=== PATIENT | male | born 1955 | race Native Hawaiian/Other Pacific Islander ===

== ENCOUNTER 2019-11-06 17:28 | Inpatient (IN) ==
[2019-11-06] MEDS ORDERED: PIPERACILL/TAZOBAC CONSULT ACTIVE PRN (19:19)
[2019-11-06] MEDS ORDERED: VANCOMYCIN CONSULT ACTIVE PRN (19:19)
[2019-11-06] MEDS ORDERED: KETOROLAC TROMETHAMINE 15 MG/ML VIAL IV STA (19:19)
[2019-11-06] MEDS ORDERED: VANCOMYCIN HCL 1,250 MG in SODIUM CHLORIDE 0.9% 500 ML IV ONE (19:19)
[2019-11-06] MEDS ORDERED: PIPERACILLIN/TAZOBACTAM 4.5 GM/120 ML BAG IV ONE (19:19)
[2019-11-06] MEDS ORDERED: SODIUM CHLORIDE 0.9% 1000ML 1,000 ML IV SCH (19:20)
--- NOTE | 2019-11-06 19:25 | Emergency Department Note ---
Impression & Plan Cellulitis of hand, right, Elevated erythrocyte sedimentation rate, Elevated C- reactive protein ED Provider Note NAME: APURVA HOOPER AGE: 64 SEX: M ARRIVES VIA: Walk-In INFORMANT: Patient, ED PROVIDER(S): Jean Pelaez MD CHIEF COMPLAINT: Hand pain, swelling PLAN: Disposition: Admit MEDICAL DECISION MAKING: The patient is a pleasant 64-year-old gentleman, right hand dominant, who presents emergency department for persistent right thumb and hand swelling that involved over the past week or so when he initially remembers pricking his finger when working outside in his garden but did not recall any particular foreign or splinter, subsequently developing some swelling on Wednesday that worsened to his entire hand on Wednesday treated with oral Augmentin by his primary care doctor but no improvement over the weekend and was switched to clindamycin yesterday with continued lack of improvement. He does report numbness and tingling of his fingers and some intermittent pain that would respond to Tylenol and Motrin. He denies any fevers, chills, cough, congestion, nausea, vomiting, diarrhea. The patient no acute distress, afebrile stable vital signs. On exam the patient has moderate edema to the right hand with increased edema of the right phalanx (thumb) with edema extending but sparing the distal aspect of the thumb. There is some degree of fluctuance on the volar aspect of the thumb without any discrete fluid collection. He does not have any severe pain with passive flexion or extension, however, tenosynovitis is considered. Given the patient's symptoms persist despite being on oral antibiotics I did discuss with the patient recommendation for admission for IV antibiotics and orthopedic consultation. The patient was agreeable with this. Case was discussed with Dr. Cornejo, orthopedic surgery on-call, and he agrees with plan for admission for IV antibiotics and they will evaluate the patient in the morning., Blood work including blood cultures were ordered and pending. Patient was ordered for initial treatment with Zosyn and vancomycin. Case was discussed with Dr. Barroso, [facility] hospitalist, who will evaluate the patient for admission. X-ray of the hand negative for evidence of osseous involvement. WBC and platelets within normal limits. H/H 13.3/30.8.recent values for comparison. ESR and CRP are elevated at >90 and 8.8, respectively. Chemistry without metabolic acidosis. Lactate 1.5, within normal limits. Electrolytes and LFTs unremarkable. Triage Nursing notes reviewed and agree them. Prior medical records reviewed Vital Signs: reviewed and remarkable for no significant abnormalities Differential diagnosis: Cellulitis, abscess, MRSA infection, DVT, necrotizing fasciitis, dermatitis, drug eruption, allergic reaction, as well as other pathologies. ER treatment provided: See below. Laboratory studies: See below Imaging studies: XR hand RT min 3V routine CLINICAL HISTORY: right thumb infection, eval for osseous involvemen COMPARISON: None. DISCUSSION: The bones and joint spaces appear intact. There is no evidence of fracture, dislocation or bony disease. Considerable soft tissue swelling overlying the from and thenar eminence. No evidence for bony destructive process. IMPRESSION: Soft tissue edema. No acute bony abnormality. Consultation(s): Dr. Cornejo, Orthopedic surgery on-call, agrees with plan for admission for IV antibiotics and they will evaluate the patient in the morning. Case was discussed with Dr. Barroso, [facility] hospitalist, who will evaluate the patient for admission. HPI: The patient is a pleasant 64-year-old gentleman, right hand dominant, who presents emergency department for persistent right thumb and hand swelling that involved over the past week or so when he initially remembers pricking his finger when working outside in his garden but did not recall any particular foreign or splinter, subsequently developing some swelling on Wednesday that worsened to his entire hand on Wednesday treated with oral Augmentin by his primary care doctor but no improvement over the weekend and was switched to clindamycin yesterday with continued lack of improvement. He does report numbness and tingling of his fingers and some intermittent pain that would respond to Tylenol and Motrin. He denies any fevers, chills, cough, congestion, nausea, vomiting, diarrhea. ROS: See above HPI for pertinent positives & negatives. A total of 10 systems reviewed and were otherwise negative. PAST MEDICAL HISTORY:See Below PAST SURGICAL HISTORY:See Below FAMILY HISTORY:See Below SOCIAL HISTORY:See Below HOME MEDICATIONS:See Below ALLERGIES:See Below VITALS:See Below PHYSICAL EXAMINATION: GENERAL: Awake, alert, relatively well-appearing, in no distress HENT: Normocephalic, atraumatic. Oropharynx unremarkable. EYES: Normal conjunctiva. Sclera non-icteric. NECK: Supple. No nuchal rigidity. FROM. No JVD. RESPIRATORY: Clear to auscultation. CARDIAC: Regular rate, normal rhythm. Extremities warm and well perfused. Pulses equal. ABDOMEN: Soft, non-distended. No tenderness to palpation. No rebound or guar ding. No masses. RECTAL: Deferred. MUSCULOSKELETAL: Chest examination reveals no tenderness. The back is symmetrical on inspection without obvious abnormality. There is no CVA tenderness to palpation. No joint edema. UPPER EXTREMITIES: Moderate edema to the right hand with increased edema of the right phalanx (thumb) but sparing the distal aspect of the thumb. There is some degree of fluctuance on the volar aspect of the thumb without any discrete fluid collection. No severe pain illicited with passive flexion or extension. Cap refill < 2s. LOWER EXTREMITIES: Calves are equal size bilaterally and non-tender. No edema. No discoloration. NEURO: Normal sensorium. No sensory or motor deficits noted. SKIN: No rash or jaundice noted. Jean Pelaez MD Past Med/Surg History Social History Preferred Language: Canadian Communication Ability: Effective Time Study Technologist Required: No Beliefs That Will Affect Care: None Current Living Situation: Family Current Living Situation Comment: daughter, lurdes Other Information That Helps Us Care for You: No Feels Safe at Home: Yes Safety Concerns: Feels Safe At This Time Smoking Status: Never smoker Do You Dip or Chew Tobacco: No ; Second Hand Exposure: No ; Hx Alcohol Use: Yes Alcohol type: beer, wine and hard liquor Hx Substance Use: No Allergies Allergies Allergy/AdvReac Type Severity Reaction Status Date / Time No Known Allergies Allergy Unverified 11/06/19 22:30 Home Meds Home Medications Medication Instructions Recorded Confirmed acetaminophen 650 mg PO DAILY PRN 11/06/19 11/06/19 clindamycin HCl 300 mg PO TID 11/06/19 11/06/19 naproxen sodium 550 mg PO BID PRN 11/06/19 11/06/19 Results & Data (ED) Vital Signs Vital Signs - 24 hr 11/06/19 17:38 11/06/19 19:28 11/06/19 20:10 Temperature 36.7 C Temperature Source Oral Pulse Rate 84 84 Pulse Rate [Radial] 69 Pulse Rate from SpO2 Sensor Pulse Rhythm Regular Pulse Rhythm [Radial] Regular Respiratory Rate 18 18 18 Respiratory Effort / Characteristics Non-Labored Spontaneous Respiratory Depth Normal Respiratory Pattern Regular Blood Pressure 146/90 H Blood Pressure [Left Arm] 156/103 H Blood Pressure Mean 108 Blood Pressure Mean [Left Arm] 120 Blood Pressure Position Sitting Pulse Oximetry 98 99 99 Oxygen Delivery Method Room Air Room Air Room Air Sepsis Recent Fever Within 48 Hours No Sepsis New/Unexplained Change in Mental Status No Sepsis Action Taken by Nursing No Action Required 11/06/19 20:11 11/06/19 20:31 11/06/19 21:00 Temperature Temperature Source Pulse Rate 61 68 64 Pulse Rate [Radial] Pulse Rate from SpO2 Sensor 66 65 Pulse Rhythm Pulse Rhythm [Radial] Respiratory Rate 20 14 15 Respiratory Effort / Characteristics Respiratory Depth Respiratory Pattern Blood Pressure 156/103 H 150/101 H 160/100 H Blood Pressure [Left Arm] Blood Pressure Mean 116 107 111 Blood Pressure Mean [Left Arm] Blood Pressure Position Pulse Oximetry 99 98 Oxygen Delivery Method Sepsis Recent Fever Within 48 Hours Sepsis New/Unexplained Change in Mental Status Sepsis Action Taken by Nursing Laboratory Data Attestation: I reviewed the patient's lab results. Result diagrams: 11/06/19 19:54 11/06/19 19:54 Lab Results 11/06/19 11/06/19 11/06/19 Range/Units 19:54 19:54 19:54 WBC 4.95 (4.8-10.8) K/uL RBC 3.54 L (4.7-6.1) M/uL Hgb 13.3 L (14.0-18.0) g/dL Hct 38.8 L (42-52) % MCV 109.6 H (80-100) fL MCH 37.6 H (25-34) pg MCHC 34.3 (32-36) g/dL RDW Std Deviation 55.1 H (36.4-46.3) fL RDW Coeff of Domenico 13.6 (11.5-14.5) % Plt Count 225 (130-400) K/uL MPV 9.1 (7.4-10.4) fL Immature Gran % (Auto) 0.2 % Neut % (Auto) 70.9 % Lymph % (Auto) 16.2 % Schley % (Auto) 12.1 % Eos % (Auto) 0.4 % Baso % (Auto) 0.2 % Immature Gran # (Auto) 0.01 (0.00-0.02) K/uL Neut # (Auto) 3.51 (1.4-6.5) K/uL Lymph # (Auto) 0.80 L (1.2-3.4) K/uL Schley # (Auto) 0.60 H (0.11-0.59) K/uL Eos # (Auto) 0.02 (0-0.5) K/uL Baso # (Auto) 0.01 (0-0.2) K/uL ESR (0-14) mm/hr PT 10.0 (9.0-12.0) Seconds INR 0.9 (0.9-1.1) APTT 27.4 (21.0-31.0) Seconds PTT Ratio 1.0 Sodium 140 (136-145) mmol/L Potassium 3.9 (3.5-5.1) mmol/L Chloride 105 (98-107) mmol/L Carbon Dioxide 33 H (21-32) mmol/L Anion Gap 2.0 L (3-11) BUN 9 (7-18) mg/dl Creatinine 0.70 (0.6-1.4) mg/dl Est Cr Clr Drug Dosing 94.0 ml/min Est GFR ( Amer) 114.8 Est GFR (Non-Af Amer) 99.0 BUN/Creatinine Ratio 12.3 (10-20) Glucose 107 H (70-99) mg/dl Lactate (0.4-2.0) mmol/L Calcium 9.6 (8.5-10.1) mg/dl Magnesium 2.4 (1.8-2.4) mg/dl Total Bilirubin 0.4 (0.2-1) mg/dl AST 16 (15-37) U/L ALT 20 (12-78) U/L Alkaline Phosphatase 43 L (45-117) U/L C-Reactive Protein (0-0.29) mg/dl Total Protein 8.4 H (6.4-8.2) gm/dl Albumin 3.9 (3.4-5.0) gm/dl Globulin 4.5 H (2.5-4.0) gm/dl Albumin/Globulin Ratio 0.9 (0.9-2) 11/06/19 11/06/19 11/06/19 Range/Units 19:54 19:54 19:54 WBC (4.8-10.8) K/uL RBC (4.7-6.1) M/uL Hgb (14.0-18.0) g/dL Hct (42-52) % MCV (80-100) fL MCH (25-34) pg MCHC (32-36) g/dL RDW Std Deviation (36.4-46.3) fL RDW Coeff of Domenico (11.5-14.5) % Plt Count (130-400) K/uL MPV (7.4-10.4) fL Immature Gran % (Auto) % Neut % (Auto) % Lymph % (Auto) % Schley % (Auto) % Eos % (Auto) % Baso % (Auto) % Immature Gran # (Auto) (0.00-0.02) K/uL Neut # (Auto) (1.4-6.5) K/uL Lymph # (Auto) (1.2-3.4) K/uL Schley # (Auto) (0.11-0.59) K/uL Eos # (Auto) (0-0.5) K/uL Baso # (Auto) (0-0.2) K/uL ESR > 90 H (0-14) mm/hr PT (9.0-12.0) Seconds INR (0.9-1.1) APTT (21.0-31.0) Seconds PTT Ratio Sodium (136-145) mmol/L Potassium (3.5-5.1) mmol/L Chloride (98-107) mmol/L Carbon Dioxide (21-32) mmol/L Anion Gap (3-11) BUN (7-18) mg/dl Creatinine (0.6-1.4) mg/dl Est Cr Clr Drug Dosing ml/min Est GFR ( Amer) Est GFR (Non-Af Amer) BUN/Creatinine Ratio (10-20) Glucose (70-99) mg/dl Lactate 1.5 (0.4-2.0) mmol/L Calcium (8.5-10.1) mg/dl Magnesium (1.8-2.4) mg/dl Total Bilirubin (0.2-1) mg/dl AST (15-37) U/L ALT (12-78) U/L Alkaline Phosphatase (45-117) U/L C-Reactive Protein 8.84 H (0-0.29) mg/dl Total Protein (6.4-8.2) gm/dl Albumin (3.4-5.0) gm/dl Globulin (2.5-4.0) gm/dl Albumin/Globulin Ratio (0.9-2) Administered Medications Acetaminophen (Tylenol) 650 mg PO Q4H PRN PRN Reason: pain/fever Stop: 12/06/19 22:08 Last Admin: 11/07/19 01:05 Dose: 650 mg Documented by: [id number] Sodium Chloride (Nss 1000ml) 1,000 mls @ 100 mls/hr IV .Q10H [facility] Stop: 12/06/19 22:08 Last Admin: 11/06/19 23:49 Dose: 100 mls/hr Documented by: [id number] Piperacillin Sod/Tazobactam (Sod 3.375 gm/ Dextrose) 115 mls @ 28.75 mls/hr IV Q8H [facility]; Protocol Stop: 11/14/19 01:59 Last Admin: 11/07/19 01:12 Dose: 28.8 mls/hr Documented by: [id number] Discontinued Medications Piperacillin Sod/Tazobactam Sod (Zosyn) 4.5 gm in 120 mls @ 240 mls/hr IV NOW ONE Stop: 11/06/19 19:48 Last Infusion: 11/06/19 20:50 Dose: 0 mls/hr Documented by: [id number] Admin: 11/06/19 20:10 Dose: 240 mls/hr Documented by: [id number] Sodium Chloride (Nss 1000ml) 1,000 mls @ 999 mls/hr IV .Q1H1M [facility] Stop: 11/06/19 20:20 Last Infusion: 11/06/19 20:50 Dose: 0 mls/hr Documented by: [id number] Admin: 11/06/19 20:10 Dose: 999 mls/hr Documented by: [id number] Vancomycin HCl 1,250 mg/ (Sodium Chloride) 525 mls @ 200 mls/hr IV NOW ONE Stop: 11/06/19 21:56 Last Infusion: 11/06/19 23:30 Dose: 0 mls/hr Documented by: [id number] Admin: 11/06/19 20:52 Dose: 200 mls/hr Documented by: [id number] Ketorolac Tromethamine (Toradol) 15 mg IV NOW STA Stop: 11/06/19 19:20 Last Admin: 11/06/19 20:10 Dose: 15 mg Documented by: [id number] Blood Pressure Blood Pressure Findings: Elevated blood pressure Blood Pressure Disposition: elevated BP felt to be situational Discharge Plan Visit Data *Final* Discharge Date/Time: 11/06/19 21:40 Chief Complaint: Swelling/Edema to Extremity Stated Complaint: HAND SWELLING ED Provider: Jean Pelaez Discharge Problem: Cellulitis of hand, right, Elevated erythrocyte sedimentation rate, Elevated C- reactive protein Patient Disposition: Admitted As Inpatient Discharge Instructions Interventions: ED Discharge Assessment Last Done: 11/06/19 21:40
[2019-11-06 20:08] LABS: Basophils # (auto) 0.01 K/uL (0-0.2); Basophils % (auto) 0.2 %; Eosinophils # (auto) 0.02 K/uL (0-0.5); Eosinophils % (auto) 0.4 %; Hematocrit (blood only) 38.8 % (42-52); Hemoglobin 13.3 g/dL (14.0-18.0); Immature Granulocytes # (auto) 0.01 K/uL (0.00-0.02); Immature Granulocytes % (auto) 0.2 %; Lymphocytes % (auto) 16.2 %; Mean Corpuscular Hemoglobin 37.6 pg (25-34); Mean Corpuscular Hgb Conc 34.3 g/dL (32-36); Mean Corpuscular Volume 109.6 fL (80-100); Mean Platelet Volume 9.1 fL (7.4-10.4); Monocytes % (auto) 12.1 %; Neutrophils # (auto) 3.51 K/uL (1.4-6.5); Neutrophils % (auto) 70.9 %; Platelet Count 225 K/uL (130-400); RDW Coefficient of Variation 13.6 % (11.5-14.5); RDW Standard Deviation 55.1 fL (36.4-46.3); Red Blood Count 3.54 M/uL (4.7-6.1); White Blood Count 4.95 K/uL (4.8-10.8)
[2019-11-06 20:18] LABS: INR 0.9 (0.9-1.1); Partial Thromboplastin Time 27.4 Seconds (21.0-31.0)
[2019-11-06 20:26] LABS: Albumin Level 3.9 gm/dl (3.4-5.0); BUN Creatinine Ratio 12.3 (10-20); Calcium 9.6 mg/dl (8.5-10.1); Est GFR (African American) 114.8; Magnesium 2.4 mg/dl (1.8-2.4); Potassium 3.9 mmol/L (3.5-5.1)
[2019-11-06 20:29] LABS: Albumin Globulin Ratio 0.9 (0.9-2); Bilirubin,Total 0.4 mg/dl (0.2-1); Globulin 4.5 gm/dl (2.5-4.0); Total Protein 8.4 gm/dl (6.4-8.2)
--- NOTE | 2019-11-06 20:39 | XRay Report ---
XR hand RT min 3V routine CLINICAL HISTORY: right thumb infection, eval for osseous involvemen COMPARISON: None. DISCUSSION: The bones and joint spaces appear intact. There is no evidence of fracture, dislocation o r bony disease. Considerable soft tissue swelling overlying the from and thenar eminence. No evidence for bony destructive process. IMPRESSION: Soft tissue edema. No acute bony abnormality. ACT 112: Negative or not required by law. The above report was generated using voice recognition software. It may contain grammatical, syntax or spelling errors. Electronically signed by: Sivakumar Howe M.D. 11/06/2019 8:37 PM
[2019-11-06] MEDS ORDERED: POLYETHYLENE (MIRALAX) 17 GM PACK PO PRN (22:09)
[2019-11-06] MEDS ORDERED: MoRPHine SULFATE 4 MG/ML 1 ML CARP\\VIAL IV PRN (22:09)
[2019-11-06] MEDS ORDERED: ONDANSETRON INJ 2 MG/ML 2 ML VIAL IV PRN (22:09)
[2019-11-06] MEDS ORDERED: PATIENT'S ALLERGY INFO NEEDS ENTERED SCH (22:30)
[2019-11-06] MEDS: SODIUM CHLORIDE 0.9% 1000ML 1,000 ML IV SCH (23:49)
--- NOTE | 2019-11-07 00:54 | History and Physical Report ---
DATE OF ADMISSION: 11/06/2019 CHIEF COMPLAINT: Swelling of the right thumb and hand. HISTORY OF PRESENT ILLNESS: This is a 64-year-old male with past medical history significant for prediabetes, not on any medications, comes with right hand thumb and hand swelling and pain. The patient says he noticed right thumb swelling about 10 days ago and last Wednesday he went to see his doctor and was prescribed Augmentin, but it was not getting better and yesterday again went to his PCP and changed the antibiotics to clindamycin, but as it was not getting better he came to the ER. He has no knowledge of any injury or any insect bite. Denies any fever or chills. He has some stiffness in his hand and difficulty flexing the hand. Denies any other complaints. Resting comfortably and hemodynamically stable. Lives with his daughter. Otherwise active. Denies any chest pain. No shortness of breath, no cough, no fever, no chills, no nausea, no vomiting, no abdominal pain. Normal bowel and bladder movements. No headache, no blurred visions, no earache, no runny nose, no sore throat, no difficulty swallowing. Appetite is okay. No sick contacts, no recent travel outside Not [place] .. No loss of smell or taste. ALLERGIES: No known drug allergies. PAST MEDICAL HISTORY: As mentioned above. PAST SURGICAL HISTORY: None. MEDICATIONS: Currently on clindamycin and Tylenol. FAMILY HISTORY: None SOCIAL HISTORY: Lives with daughter. Quit smoking in 2005, smoked 1 pack a day for 30 years. Alcohol, 3 glasses of wine daily. No drug use. REVIEW OF SYSTEMS: As per HPI. Rest of the review of systems negative. PHYSICAL EXAMINATION: GENERAL: The patient is of moderate build, not in acute distress. VITAL SIGNS: Temperature 36.7, pulse 84, respiratory rate 18, blood pressure 156/103, oxygen 97% on room air. HEENT: No pallor, no icterus. Pupils equal, round, reactive to light. Extraocular movements intact. NECK: No neck masses. Supple. CARDIOVASCULAR: S1, S2 heard. Regular rate and rhythm, no murmur, no gallop. RESPIRATORY SYSTEM: Normal AP diameter. No accessory muscle use. No wheezing, no crackles. ABDOMEN: Soft, bowel sounds present. Nontender. No distention. CENTRAL NERVOUS SYSTEM: Cranial nerves II-XII grossly intact. Nonfocal. EXTREMITIES: Right thumb and right hand is swollen and painful movements, . LABORATORY DATA: WBC 4.9, hemoglobin 13.3, hematocrit 38.8, platelets 255. PT 10, INR 0.9, APTT 27.4. Sodium 140, potassium 3.9, chloride 105, bicarbonate 33, BUN 9, creatinine 0.7, serum glucose 107, lactate 1.5, calcium 9.6 , magnesium 2.4, total bilirubin 0.4, AST 16, ALT 20, alkaline phosphatase 43. C-reactive protein 8.8. IMAGING DATA: Hand x-ray, soft tissue edema. No acute bony abnormality. ASSESSMENT AND PLAN: This is a 64-year-old male who presents with right hand thumb and hand infection. 1. Right hand and thumb infection. Failed outpatient treatment with Augmentin and clindamycin. Starting on IV vancomycin and Zosyn . Consult ortho in the a.m. for further recommendations. 2. Prediabetes Follow his blood sugars. 3. Deep venous thrombosis prophylaxis, sequential compression devices for now. 4. Disposition: Closely monitor in the medical floor. Level 1 full code. MTDD
[2019-11-07] MEDS: ACETAMINOPHEN 325 MG TAB PO PRN ×2 (01:05→21:50)
[2019-11-07] MEDS: PIPERACILLIN/TAZOBACTAM 3.375 GM in DEXTROSE 5% 100 ML IV SCH ×2 (01:12→09:54)
[2019-11-07 05:37] LABS: Basophils # (auto) 0.01 K/uL (0-0.2); Basophils % (auto) 0.3 %; Eosinophils # (auto) 0.04 K/uL (0-0.5); Eosinophils % (auto) 1.1 %; Hematocrit (blood only) 32.4 % (42-52); Immature Granulocytes # (auto) 0.01 K/uL (0.00-0.02); Immature Granulocytes % (auto) 0.3 %; Lymphocytes # (auto) 0.75 K/uL (1.2-3.4); Lymphocytes % (auto) 20.2 %; Mean Corpuscular Hemoglobin 36.7 pg (25-34); Monocytes # (auto) 0.44 K/uL (0.11-0.59); Monocytes % (auto) 11.8 %; Neutrophils # (auto) 2.47 K/uL (1.4-6.5); Neutrophils % (auto) 66.3 %; Platelet Count 185 K/uL (130-400); RDW Coefficient of Variation 13.8 % (11.5-14.5); RDW Standard Deviation 54.4 fL (36.4-46.3); White Blood Count 3.72 K/uL (4.8-10.8)
[2019-11-07 05:53] LABS: BUN Creatinine Ratio 16.3 (10-20); Calcium 8.5 mg/dl (8.5-10.1); Est GFR (African American) 118.3; Est GFR (Non-African American) 102.1; Potassium 3.8 mmol/L (3.5-5.1)
[2019-11-07 06:22] LABS: Estimated Average Glucose 117 mg/dl; Hemoglobin A1C 5.7 % (4.5-5.6)
--- NOTE | 2019-11-07 07:21 | Orthopedic Consultation ---
Date of Consultation November 07, 2019 Assessment & Plan (1) Cellulitis of hand, right: This is likely a cellulitic reaction around the right hand. I do not see any definitive areas of abscess. I do not see any surgical indications at this time. He is not having much pain and he is neurovascularly intact. I agree with the Zosyn and the vancomycin IV. Sometimes it takes 1 to 2 days before we start seeing a decrease in the swelling. I am going to continue to follow this closely. If his symptoms worsen or if he starts having neurovascular deficits then we may do an urgent MRI of the area and discuss possible surgical releases or I&D's if necessary. Present on Admission?: Yes History of Present Illness Reason for Consultation: Cellulitis of the right hand Attending Physician: Nolberto Oliveira MD History of Present Illness Yosef is a pleasant 64-year-old male who injured his right hand about 10 days ago. He feels the injury was on the volar aspect of the IP joint of his right thumb. He does not recall exactly what the injury was. He is not sure if it was a splinter or a small cut. Over the past 10 days he noticed more more swelling of his right thumb and started to extend into his hand. He saw his primary care physician who initially ordered him Augmentin. Unfortunately the swelling continued. He was then placed on clindamycin without any more relief. He then came to the emergency room. He was admitted to the hospital service and started on vancomycin and Zosyn. The swelling of his hand is starting to extend up his forearm. He notices some diminished sensation in his fingers. He is not having much pain in his hand. He can move his fingers without much pain he does not have much pain to palpation. There is no obvious entry point and no obvious site of abscess. There is just a lot of swelling of his right hand. Orthopedics was consulted to evaluate and treat. Allergies Allergy/AdvReac Type Severity Reaction Status Date / Time No Known Allergies Allergy Unverified 11/06/19 22:30 Home Medications Home Medications Medication Instructions Recorded Confirmed Type acetaminophen 650 mg PO DAILY PRN 11/06/19 11/06/19 History clindamycin HCl 300 mg PO TID 11/06/19 11/06/19 History naproxen sodium 550 mg PO BID PRN 11/06/19 11/06/19 History Patient History Social History Preferred Language: Wolof Communication Ability: Effective Gas Well Pumper Required: No Beliefs That Will Affect Care: None Current Living Situation: Family Current Living Situation Comment: daughter, lurdes Other Information That Helps Us Care for You: No Feels Safe at Home: Yes Safety Concerns: Feels Safe At This Time Smoking Status: Never smoker Do You Dip or Chew Tobacco: No ; Second Hand Exposure: No ; Hx Alcohol Use: Yes Alcohol type: beer, wine and hard liquor Hx Substance Use: No Review of Systems Review of Systems: All systems reviewed & are unremarkable except as noted in HPI & below Physical Exam Constitutional: WD/WN, vitals as above Eyes: PERRL, conjunctivae normal, anicteric sclerae ENMT: external ear and nose normal, oropharynx normal Neck: trachea midline, no thyromegaly Respiratory: normal respiratory effort Cardiovascular: RRR, no murmur, no edema Gastrointestinal (Abdomen): normal bowel sounds, soft, nontender, no hepatosplenomegaly Musculoskeletal: On physical examination of his right hand, there is extensive swelling throughout his right hand. He can only make about 20% of a normal fist. Most the swelling seems located at the palmar aspect of his right thumb. It seems to extend towards the small finger. His small finger is also swollen, but not as bad as his right thumb. The swelling extends up to the mid aspect of his right forearm. He does not have much pain. I palpated throughout his entire hand and his forearm and he says it really does not hurt. There is no obvious entry point. There is no hardened areas of abscess or obvious areas of infection. He has good capillary refill. He is feeling in all of his fingers but he says it is slightly diminished. Psychiatric: A+Ox3, euthymic affect Results & Data ([facility]) Vital Signs (Past 12 Hours) Vital Signs Temp Pulse Pulse Pulse Resp BP BP 11/06/19 22:15 37 C 63 18 156/94 H 11/06/19 21:40 64 15 160/100 H 11/06/19 21:00 64 15 160/100 H 11/06/19 20:31 68 14 150/101 H 11/06/19 20:11 61 20 156/103 H 11/06/19 20:10 84 18 11/06/19 19:28 69 18 156/103 H Pulse Ox 11/06/19 22:15 100 11/06/19 21:40 98 11/06/19 21:00 98 11/06/19 20:31 99 11/06/19 20:11 11/06/19 20:10 99 11/06/19 19:28 99 PG Care Time/CCT Total # of Minutes Spent Total Time Spent with Patient: Total time spent is greater than 50% in coordination of care (as documented) at patient's floor/unit and/or counseling patient: Coding Level of Care Code 42198 Inpt Consult Level 3 Diagnoses Cellulitis of hand, right L03.113
[2019-11-07] MEDS ORDERED: VANCOMYCIN HCL 1,000 MG in SODIUM CHLORIDE 0.9% 250 ML IV SCH (08:00)
--- NOTE | 2019-11-07 09:40 | Pharmacy Report ---
Pharmacy Abx Dose Short Note - Date of Service November 07, 2019 - Assessment & Plan Assessment 64 yo M ordered vancomycin + zosyn for empiric treatment of right hand thumb infection * Patient noticed right thumb swelling ~10 days ago. He was prescribed Augmentin. He returned to his PCP on 11/04 due to lack of improvement. Antibiotics were changed to clindamycin. He presented to ED on 11/05 due to continued lack of improvement. * No definite area of abscess per Ortho evaluation * BC x 2 pending Plan Vancomycin * Loading dose: 1250 mg IV * Maintenance dose: 1000 mg IV q12h * patient received one dose of 1000 mg IV 11/06 @ 0800 * will increase to 1250 mg (19.8 mg/kg) IV q12h based on estimated T1/2 = 7.9 hr * Goal trough level: ~15 mcg/mL * Trough level ordered for: 11/07 @ 1930 Zosyn * continue 3.375g IV q8h (ext. infusion) Pharmacy will continue to follow and will adjust dose/frequency as necessary. Thank you.
[2019-11-07] MEDS: SODIUM CHLORIDE 0.9% 1000ML 1,000 ML IV SCH ×2 (09:54→19:54)
--- NOTE | 2019-11-07 12:54 | Hospitalist Progress Note ---
Date of Service November 07, 2019 Assessment & Plan (1) Cellulitis of hand, right: Initial right thumb infection about 10 days ago Received oral Augmentin and later on clindamycin without any improvement No sepsis on admission and no fever and/or elevation of the white count Elevated C-reactive protein and ESR are due to inflammatory response X-ray did not show any abscess and or bony involvement Has been started with intravenous vancomycin and Zosyn Appreciate Ortho input and recommendation-no need for any I&D Zosyn discontinued We will continue Vanco for now Advised to keep the right upper extremity elevated, above the level of the heart Likely to change antibiotic to oral Keflex on discharge since failure with a and clindamycin Likely to be discharged tomorrow Admission and Anticipated Discharge Date Admission Date: November 06, 2019 Subjective 11/07/2019 The patient was seen and examined in medical floor He was admitted with right hand infection , failed outpatient treatment Complains to have swelling, warmth, pain and decreasing functional capacity with right hand No fever and/or chills Review of Systems Review of Systems: All systems reviewed and are unremarkable except as noted below Musculoskeletal: Right hand and adjoining forearm swollen, increased local temperature and edema involving the hand and part of forearm, no obvious fluctuation or abscess noted Physical Exam Physical Exam: Lying in bed comfortably Constitutional: well developed, well nourished and + ill appearing; no acute distress Eyes: PERRL, conjunctivae normal, anicteric sclerae ENMT: external ear and nose normal, oropharynx normal Neck: trachea midline, no thyromegaly Respiratory: normal respiratory effort; no respiratory distress Auscul tation: lungs clear to auscultation bilaterally Cardiovascular: Rate/Rhythm: regular rate and regular rhythm Heart Sounds: no murmur Gastrointestinal (Abdomen): Inspection/Auscultation: abdomen normal to inspection and normal bowel sounds Percussion/Palpation: abdomen soft; abdomen nontender Musculoskeletal: Right hand in the adjoining area of the forearm are swollen with increased edema and increased local temperature. Decreased handgrip due to tense swelling. No localized fluid collection an hour abscess noted Neurologic: moves all extremities; no focal motor deficits Results & Data Results & Data ([facility]) Vital Signs (Past 12 Hours) Vital Signs Temp Pulse Resp BP Pulse Ox 11/07/19 07:58 36.7 C 56 L 18 137/87 99 Laboratory Results Short CBC 11/06/19 11/07/19 Range/Units 19:54 05:17 WBC 4.95 3.72 L (4.8-10.8) K/uL Hgb 13.3 L 11.0 L (14.0-18.0) g/dL Hct 38.8 L 32.4 L (42-52) % Plt Count 225 185 (130-400) K/uL BMP 11/06/19 11/07/19 19:54 05:17 Sodium 140 141 Potassium 3.9 3.8 Chloride 105 110 H Carbon Dioxide 33 H 24 BUN 9 11 Creatinine 0.70 0.65 Glucose 107 H 106 H Calcium 9.6 8.5 Liver Function 11/06/19 Range/Units 19:54 Total Bilirubin 0.4 (0.2-1) mg/dl AST 16 (15-37) U/L ALT 20 (12-78) U/L Alkaline Phosphatase 43 L (45-117) U/L Albumin 3.9 (3.4-5.0) gm/dl Medications Administered Current Inpatient Medications Acetaminophen (Tylenol) 650 mg PO Q4H PRN PRN Reason: pain/fever Stop: 12/06/19 22:08 Last Admin: 11/07/19 01:05 Dose: 650 mg Documented by: Sodium Chloride (Nss 1000ml) 1,000 mls @ 100 mls/hr IV .Q10H [facility] Stop: 12/06/19 22:08 Last Admin: 11/07/19 09:54 Dose: 100 mls/hr Documented by: Piperacillin Sod/Tazobactam (Sod 3.375 gm/ Dextrose) 115 mls @ 28.75 mls/hr IV Q8H [facility]; Protocol Stop: 11/07/19 14:00 Last Admin: 11/07/19 09:54 Dose: 28.8 mls/hr Documented by: Vancomycin HCl 1,250 mg/ (Sodium Chloride) 275 mls @ 125 mls/hr IV Q12H [facility] Stop: 11/14/19 07:59 Miscellaneous Information (Consult) 1 ea N/A UD PRN PRN Reason: Consult Stop: 12/06/19 19:18 Morphine Sulfate (Morphine Sulfate) 3 mg IV Q4H PRN PRN Reason: Pain Stop: 11/20/19 22:08 Ondansetron HCl (Zofran) 4 mg IV Q6H PRN PRN Reason: Nausea Stop: 12/06/19 22:08 Polyethylene Glycol (Miralax Powder Packet) 17 gm PO DAILY PRN PRN Reason: Constipation Stop: 12/06/19 22:08
[2019-11-07] MEDS: VANCOMYCIN HCL 1,250 MG in SODIUM CHLORIDE 0.9% 250 ML IV SCH (19:55)
[2019-11-08 06:04] LABS: Basophils # (auto) 0.01 K/uL (0-0.2); Basophils % (auto) 0.3 %; Eosinophils # (auto) 0.04 K/uL (0-0.5); Eosinophils % (auto) 1.1 %; Hematocrit (blood only) 31.9 % (42-52); Hemoglobin 10.8 g/dL (14.0-18.0); Immature Granulocytes # (auto) 0.01 K/uL (0.00-0.02); Immature Granulocytes % (auto) 0.3 %; Lymphocytes # (auto) 0.99 K/uL (1.2-3.4); Lymphocytes % (auto) 28.4 %; Mean Corpuscular Hemoglobin 36.7 pg (25-34); Mean Corpuscular Hgb Conc 33.9 g/dL (32-36); Mean Corpuscular Volume 108.5 fL (80-100); Mean Platelet Volume 8.9 fL (7.4-10.4); Monocytes # (auto) 0.35 K/uL (0.11-0.59); Neutrophils # (auto) 2.09 K/uL (1.4-6.5); Neutrophils % (auto) 59.9 %; Platelet Count 222 K/uL (130-400); RDW Coefficient of Variation 13.7 % (11.5-14.5); RDW Standard Deviation 54.1 fL (36.4-46.3); Red Blood Count 2.94 M/uL (4.7-6.1); White Blood Count 3.49 K/uL (4.8-10.8)
[2019-11-08 06:33] LABS: BUN Creatinine Ratio 13.6 (10-20); Calcium 8.5 mg/dl (8.5-10.1); Creatinine Clr Calc Pharmacy 109.4 ml/min; Est GFR (African American) 122.3; Est GFR (Non-African American) 105.5; Potassium 3.7 mmol/L (3.5-5.1)
--- NOTE | 2019-11-08 07:36 | Orthopedic Progress Note ---
Date of Service November 08, 2019 Assessment & Plan (1) Cellulitis of hand, right: Right now we will continue the IV antibiotics. I want to see a little bit more improvement before we consider discharging him home on oral antibiotics. I cannot palpate any localized area of an abscess to indicate an I&D and I cannot appreciate any foreign objects in the flexor region of his thumb. If his hand swelling does not improve then we can consider an MRI of his hand and see if an I&D would be necessary. However, he has been improving on the IV antibiotics and I want to continue to watch it for now. I will see him again tomorrow. I think I would like him on at least another day of the IV antibiotics before we consider discharging him home on orals. Present on Admission?: Yes Subjective Marcia was seen and examined at bedside. Overall his hand is a little bit better. He said it was doing even better yesterday but this morning the swelling is returned some. However, the swelling is still improved from yeste rday. He really is not having much pain in his hand. I do not see any areas of abscess or indications for an I&D. He is currently on vancomycin and Zosyn. He has no new complaints. Physical Exam Musculoskeletal: On physical examination of the right hand, the swelling is improved somewhat. He can make about 35% of a full fist. The most swollen area is on the flexor region of his right thumb. He has no tenderness to palpation along that area. There is no redness. He can move his thumb without much pain. He has minimal tightness going up his forearm and that seems to be improved from yesterday. The swelling is almost completely down his index finger and his small finger. His sensations intact and has good capillary refill. Results & Data ([facility]) Vital Signs (Past 12 Hours) Vital Signs Temp Pulse Resp BP Pulse Ox 11/07/19 23:14 37.1 C 73 16 143/81 H 97 PG Care Time/CCT Total # of Minutes Spent Total Time Spent with Patient: Total time spent is greater than 50% in coordination of care (as documented) at patient's floor/unit and/or counseling patient: Coding Level of Care Code 16203 Subseq Hosp Care Lvl 2 Diagnoses Cellulitis of hand, right L03.113
[2019-11-08] MEDS: SODIUM CHLORIDE 0.9% 1000ML 1,000 ML IV SCH ×3 (08:45→23:51)
[2019-11-08] MEDS: VANCOMYCIN HCL 1,250 MG in SODIUM CHLORIDE 0.9% 250 ML IV SCH ×2 (08:46→20:17)
[2019-11-08] MEDS ORDERED: PIPERACILL/TAZOBAC CONSULT ACTIVE PRN (12:37)
[2019-11-08] MEDS ORDERED: PIPERACILLIN/TAZOBACTAM 3.375 GM in DEXTROSE 5% 100 ML IV ONE (13:00)
--- NOTE | 2019-11-08 13:05 | Hospitalist Progress Note ---
Date of Service November 08, 2019 Assessment & Plan (1) Cellulitis of hand, right: failed outpatient Augmentin, Clindamycin xray of hand: no acute bony abnormalities add Zosyn to Vanco continue IV NSS if without improvement, MRI tomorrow appreciate Ortho SVC input case discussed with patient in detail and at length all questions answered he is understanding, agreeable, comfortable with the plan of care Admission and Anticipated Discharge Date Admission Date: November 06, 2019 Subjective ff up for right thumb and hand cellulitis seen resting in bed , comfortable reports right hand including thumb seems to be about the same as yesterday denies wrist or arm pain denies fever/chills no chest pain, shortness of breath, abdominal pain Review of Systems Review of Systems: All systems reviewed & are unremarkable except as noted in HPI & below Physical Exam Physical Exam: General- oriented x 3, not in distress, speaks in sentences with no effort or accessory muscle use Head- atraumatic Eyes- PERRL, EOMI, anicteric ENT- oropharynx clear Neck- supple, no JVD, no adenopathy, no thyromegaly; carotids +2/2, no bruits appreciated Lungs- clear to auscultation bilaterally, no rales/wheezes Heart- normal rate, regular rhythm; no murmur, no gallop, no rub appreciated Abdomen- normal bowel sounds, nondistended, soft, nontender, no masses or hepatosplenomegaly Extremities- right thumb- (+) significant edema, small fluctuant area in the middle, no erythema/warmth/tenderness right hand- moderate edema of fingers, no erythema/warmth/tenderness good range of motion of fingers no pretibial edema, no calf tenderness; peripheral pulses intact Neuro- alert, oriented x 3; CN 2-12 grossly intact; motor 5/5 bilaterally;sensation 100% on all extremities; no other gross focal neurologic deficits Skin- warm & dry Results & Data Results & Data ([facility]) Vital Signs (Past 12 Hours) Vital Signs Temp Pulse Resp BP Pulse Ox 11/08/19 09:33 129/82 11/08/19 07:38 36.6 C 63 18 147/93 H 98
[2019-11-08] MEDS: ACETAMINOPHEN 325 MG TAB PO PRN (15:44)
[2019-11-08] MEDS: LACTOBACILLUS ACIDOPHILUS (FLORANEX) TAB PO SCH ×2 (17:03→20:21)
[2019-11-08] MEDS: PIPERACILLIN/TAZOBACTAM 3.375 GM in DEXTROSE 5% 100 ML IV SCH (17:27)
[2019-11-08] MEDS ORDERED: VANCOMYCIN TROUGH ONE (19:30)
--- NOTE | 2019-11-08 21:00 | Pharmacy Report ---
Pharmacy Abx Dose Short Note - Date of Service November 08, 2019 - Assessment & Plan Laboratory Tests 11/08/19 11/08/19 11/08/19 04:59 04:59 19:19 WBC 3.49 L Creatinine 0.60 Est Cr Clr Drug Dosing 109.4 Vancomycin Trough 9.6 Assessment 64 year old M receiving VANC for treatment of Right thumb infection Day # 3 of antimicrobial therapy. Plan Vancomycin * Maintenance dose: 1250mg (19.8MG/KG) IV q12h * Vanc trough level is SUBtherapeutic. * Shortened dosing interval, Vanc 1250mg (19.8mg/kg) IV q 10 hours. * Goal trough level: ~15 mcg/mL * Will recheck Vanc trough prior to 4th dose. Pharmacy will continue to follow and will adjust dose/frequency as necessary. Thank you.
[2019-11-09] MEDS: VANCOMYCIN HCL 1,250 MG in SODIUM CHLORIDE 0.9% 250 ML IV SCH ×3 (03:09→23:47)
[2019-11-09] MEDS: PIPERACILLIN/TAZOBACTAM 3.375 GM in DEXTROSE 5% 100 ML IV SCH ×3 (03:09→17:33)
[2019-11-09 05:34] LABS: Creatinine Clr Calc Pharmacy 88.7 ml/min; Est GFR (African American) 112.2; Est GFR (Non-African American) 96.8
[2019-11-09] MEDS: LACTOBACILLUS ACIDOPHILUS (FLORANEX) TAB PO SCH ×4 (09:15→20:56)
--- NOTE | 2019-11-09 10:41 | Orthopedic Progress Note ---
Date of Service November 09, 2019 Assessment & Plan (1) Cellulitis of hand, right: At this point he continues to have a lot of swelling of his hand and persistent swelling in the palmar aspect of his thumb. There may be a foreign body in that area that needs to come out. I want to send him for an MRI of his hand. A 1 to make sure I am not missing any abscesses or foreign bodies that may need need removed. I just want to be sure before we consider sending him home on oral antibiotics. Hopefully we can get the MRI today. We can make some more decisions after I review the MRI. Present on Admission?: Yes Subjective Ms. Castellano was seen and examined at bedside this morning. Overall he is a little bit improved. The swelling started to go down some in his hand. He can make a moist 50% of a full fist. He still does not have much pain. The swelling on the palmar aspect of the IP joint of his right thumb seems to be increasing a little bit. He does not have much pain in the area. It looks like there could be a foreign body in that area. I do not feel comfortable sending him home with oral antibiotics at this time. He is still not having much pain in his hand. He has no new complaints. Physical Exam Musculoskeletal: On physical examination of the right hand, the swelling is improved. He can make about 50% of a full fist. He still is a lot of swelling on the palmar aspect of the IP joint of his right thumb. I think I can see a possible foreign body in that area. There is no erythema. He does not have any pain with range of motion of his hand. He has no numbness or neurologic deficits. Results & Data ([facility]) Vital Signs (Past 12 Hours) Vital Signs Temp Pulse Resp BP Pulse Ox 11/09/19 07:27 36.7 C 73 16 156/97 H 98 11/08/19 23:15 36.8 C 68 16 148/88 H 97 PG Care Time/CCT Total # of Minutes Spent Total Time Spent with Patient: Total time spent is greater than 50% in coordination of care (as documented) at patient's floor/unit and/or counseling patient: Coding Level of Care Code 56916 Subseq Hosp Care Lvl 2 Diagnoses Cellulitis of hand, right L03.113
--- NOTE | 2019-11-09 12:47 | Magnetic Resonance Report ---
MR hand RT wo con CLINICAL HISTORY: cellulitis, foreign body palmar IP joint of thumb evaluate for osteomyelitis. COMPARISON STUDY: X-ray study dated 11/06/2019 FINDINGS: Imaging was performed in the axial, sagittal, and coronal planes. There is T2 marrow edema involving the distal phalanx of the thumb. No definitive T1 marrow edema is visualized. There is soft tissue edema centered on the interphalangeal joint. There is a small amount of fluid present within the flexor tendon sheath. There is a superficial subcutaneous fluid collecti on on the volar aspect of the thumb centered on the interphalangeal joint measuring 12 x 14 x 4 mm. T here are no ferromagnetic artifacts 2 indicate a definitive foreign body. IMPRESSION: 1. T2 marrow edema involving the distal phalanx of the thumb, but no definitive T1 marrow edema. The findings are therefore indicative of a reactive osteitis, with no current evidence of osteomyelitis. 2. Soft tissue edema involving the thumb with an acute cutaneous and subcutaneous fluid collection on the volar aspect of the thumb centered on the interphalangeal joint measuring 14 x 12 x 4 mm. 3. Small amount of fluid within the flexor tendon sheath of the thumb.. ACT 112: Negative or not required by law. Electronically signed by: Oumar Meredith M.D. 11/09/2019 12:45 PM
--- NOTE | 2019-11-09 15:12 | Orthopedic Progress Note ---
Date of Service November 09, 2019 Assessment & Plan (1) Cellulitis of hand, right: I went over the MRI with him at bedside. We talked about continued conservative treatment with IV antibiotics versus an I&D of the right thumb. He would like to proceed with an I&D. I can do it under sedation and a local anesthetic. We will plan to do it tomorrow. He will be n.p.o. past midnight tonight. He will likely stay all day tomorrow on the IV antibiotics after the I&D and then may possibly be discharged to home on oral antibiotics on Wednesday. We will see how he does. Present on Admission?: Yes Subjective Marcia was seen and examined again at bedside. He still is a lot of swelling in his hands. The abscess area under the IP joint of his thumb is becoming more fluctuant. I sent him for an MRI this morning. I went over the MRI. Review of Systems Review of Systems: All systems reviewed & are unremarkable except as noted in HPI & below Physical Exam Constitutional: WD/WN, vitals as above Eyes: PERRL, conjunctivae normal, anicteric sclerae ENMT: external ear and nose normal, oropharynx normal Neck: trachea midline, no thyromegaly Respiratory: normal respiratory effort Cardiovascular: RRR, no murmur, no edema Gastrointestinal (Abdomen): normal bowel sounds, soft, nontender, no hepatos plenomegaly Musculoskeletal: Physical examination of his hand is basically unchanged from this morning. He still has some swelling but a little more fluctuance under the IP joint of his right thumb. He really has no pain in his hand and no tenderness palpation. He is neurovascularly intact. Psychiatric: A+Ox3, euthymic affect Results & Data ([facility]) Vital Signs (Past 12 Hours) Vital Signs Temp Pulse Resp BP Pulse Ox 11/09/19 07:27 36.7 C 73 16 156/97 H 98 Diagnostic Findings MRI images of his right thumb were reviewed by myself personally. I do not see any abscesses deep within the thenar or hyperthenar regions. I do not see any abscesses along the flexor tendon sheaths. He does have a small abscess under the IP joint of his right thumb. MRI report was read as well and it was read as a small abscess at the IP joint of the right thumb. PG Care Time/CCT Total # of Minutes Spent Total Time Spent with Patient: Total time spent is greater than 50% in coordination of care (as documented) at patient's floor/unit and/or counseling patient: Coding Level of Care Code 98525 Subseq Hosp Care Lvl 3 (25 - SIGNIFICANT, SEPARATELY IDENTIFIABLE ) Diagnoses Cellulitis of hand, right L03.113
--- NOTE | 2019-11-09 18:58 | Hospitalist Progress Note ---
Date of Service November 09, 2019 Assessment & Plan (1) Cellulitis of hand, right: patient is a chef under by profession, also does gardening as a hobby presents with right thumb and hand swelling x 7-10 days failed outpatient Augmentin, Clindamycin xray of hand: no acute bony abnormalities MRI hand: 1. T2 marrow edema involving the distal phalanx of the thumb, but no definitive T1 marrow edema. The findings are therefore indicative of a reactive osteitis, with no current evidence of osteomyelitis. 2. Soft tissue edema involving the thumb with an acute cutaneous and subcutaneous fluid collection on the volar aspect of the thumb centered on the interphalangeal joint measuring 14 x 12 x 4 mm. 3. Small amount of fluid within the flexor tendon sheath of the thumb.. on Day 2 IV Vanco, Day 1 IV Zosyn slow improvement noted for I&D tomorrow ID consulted continue IV NSS appreciate Ortho SVC input case discussed with patient in detail and at length all questions answered he is understanding, agreeable, comfortable with the plan of care Admission and Anticipated Discharge Date Admission Date: November 06, 2019 Subjective ff up for hand, thumb cellulitis seen resting in bed, comfortable states right hand feels slightly better than yesterday able to move fingers better no arm pain denies nausea, chills, headache, chest pain, dyspnea tolerating antibiotics well no other symptoms Review of Systems Review of Systems: All systems reviewed & are unremarkable except as noted in HPI & below Physical Exam Physical Exam: General- oriented x 3, not in distress, speaks in sentences with no effort or accessory muscle use Eyes- anicteric Neck- no JVD Lungs- clear breath sounds bilaterally, no rales/wheezes Heart- normal rate, regular rhythm; no murmurs Abdomen- normal bowel sounds, nondistended, soft, nontender Extremities- right hand: (+) fluctuant area IP joint of thumb, (+) moderate edema, no warmth/tenderness/erythema, better ROM no pretibial edema, no calf tenderness Neuro- alert, oriented x 3; no gross focal neurologic deficits Skin- warm & dry Results & Data Results & Data ([facility]) Vital Signs (Past 12 Hours) Vital Signs Temp Pulse Resp BP Pulse Ox 11/09/19 15:09 36.7 C 75 18 162/91 H 97 11/09/19 07:27 36.7 C 73 16 156/97 H 98 Laboratory Results Laboratory Results - last 24 hr 11/08/19 11/09/19 19:19 04:55 Creatinine 0.74 Est Cr Clr Drug Dosing 88.7 Est GFR ( Amer) 112.2 Est GFR (Non-Af Amer) 96.8 Vancomycin Trough 9.6
[2019-11-09] MEDS: SODIUM CHLORIDE 0.9% 1000ML 1,000 ML IV SCH (20:56)
[2019-11-10] MEDS: PIPERACILLIN/TAZOBACTAM 3.375 GM in DEXTROSE 5% 100 ML IV SCH ×3 (02:13→17:38)
[2019-11-10] MEDS ORDERED: PROPOFOL IV EMULSION 10 MG/ML 20 ML VIAL IV ONE (06:48)
[2019-11-10] MEDS ORDERED: LIDOCAINE HCL 2% 2 ML VIAL/AMP(20MG/ML) INFIL ONE (06:48)
[2019-11-10] MEDS ORDERED: ONDANSETRON INJ 2 MG/ML 2 ML VIAL ONE (06:48)
[2019-11-10] MEDS ORDERED: MIDAZOLAM HCL 1 MG/ML 2ML VIAL ONE (06:49)
[2019-11-10] MEDS ORDERED: fentaNYL citrate 100 MCG/2 ML VIAL ONE (06:49)
--- NOTE | 2019-11-10 06:56 | Anesthesiology Consultation ---
Date of Service November 10, 2019 Assessment & Plan (1) Encounter for pre-operative examination: Chart Review Chart Review: Acceptable Risk for Surgery and Patient NOT seen in Pre Admission Testing Consults Requested none ASA ASA2 Proposed Anesthesia Anesthesia Type: MAC Risk / Benefits Reviewed With: PT / POA / Parent / Guardian, Accepts Plan and Informed Consent Obtained History Surgery Operation Date: 11/10/19 12:35 Proposed Procedures p Right Thumb Incision and Drainage - Indra Cornejo, DO Height/Weight Height: 5 ft 7 in Weight: 63 kg Allergies Allergy/AdvReac Type Severity Reaction Status Date / Time No Known Allergies Allergy Unverified 11/10/19 06:45 Medications Home Medications Medication Instructions Recorded Confirmed Last Taken acetaminophen 650 mg PO DAILY PRN 11/06/19 11/06/19 11/06/19 15:00 clindamycin HCl 300 mg PO TID 11/06/19 11/06/19 11/06/19 x 2 doses naproxen sodium 550 mg PO BID PRN 11/06/19 11/06/19 11/06/19 10:00 Active Medications Generic Name Dose Route Start Last Admin Trade Name Freq PRN Reason Stop Dose Admin Acetaminophen 650 mg 11/06/19 22:09 11/08/19 15:44 Tylenol PO 12/06/19 22:08 650 mg Q4H PRN Administration pain/fever Sodium Chloride 1,000 mls @ 60 mls/hr 11/06/19 22:09 11/10/19 06:25 Nss 1000ml IV 12/06/19 22:08 60 mls/hr .[id number] [facility] Infusion Piperacillin Sod/Tazobactam 115 mls @ 28.75 mls/hr 11/08/19 18:00 11/10/19 06:17 Sod 3.375 gm/ Dextrose IV 11/15/19 17:59 Infused Q8H [facility] In[facility] Protocol Vancomycin HCl 1,250 mg/ 275 mls @ 125 mls/hr 11/09/19 04:00 11/10/19 02:12 Sodium Chloride IV 11/12/19 23:59 Infused Q10H [facility] Infusion Lactobacillus Acidophilus 4 tab 11/08/19 17:00 11/09/19 20:56 Floranex PO 12/08/19 16:59 4 tab QIDM [facility] Administration NPO Date Last Intake of Fluids: 11/09/19 Time Last Intake of Fluids: 21:00 Date Last Intake of Solids: 11/09/19 Time Last Intake of Solids: 21:00 Past Medical History no major medical problems Exercise / Class Metabolic Activity II 4-5 Yardwork/Stairs/Walk up hill Past Surgical History tendon repair of thumb Past Anesthesia History No Hx of Anesthesia Complications History of PONV No Hx of PONV Social History Smoking Status: Never smoker Do You Dip or Chew Tobacco: No Hx Alcohol Use: Yes Alcohol type: beer, wine and hard liquor alcohol intake frequency: 0-2 drinks per day Hx Substance Use: No substance use type: does not use Review of Systems Negative for chest pain or shortness of breath. Patient denies active symptoms of GERD. Physical Exam Vital Signs Last Vital Signs Temp 36.9 C 11/10/19 06:50 Pulse 18 L 11/10/19 06:50 Resp 18 11/10/19 06:50 BP 141/89 H 11/10/19 06:50 Pulse Ox 98 11/10/19 06:50 Constitutional not obese ENMT Mouth: no TMJ abnormality and oral opening not small Thyromental Distance: > or= 3.5 Finger Breadths Mallampati Class: III Mouth / Teeth: 1. Lower denture, upper partial 2. [place]ck normal visual inspection and + facial hair; neck extension not limited Respiratory normal respiratory effort Auscultation: lungs clear to auscultation bilaterally Cardiovascular Rate/Rhythm: regular rate and regular rhythm Heart Sounds: no murmur Neurologic moves all extremities Psychiatric Orientation: alert and oriented x 3 Testing Laboratory Results 11/08/19 04:59 11/09/19 04:55 PT 10.0 Seconds (9.0-12.0) 11/06/19 19:54 INR 0.9 (0.9-1.1) 11/06/19 19:54 APTT 27.4 Seconds (21.0-31.0) 11/06/19 19:54 Hemoglobin A1c 5.7 % (4.5-5.6) H 11/07/19 05:17 11/06/19 19:54 Aerobic Blood Culture - Preliminary Blood No growth in Aerobic bottle after 48 hours. Anaerobic Blood Culture - Preliminary No growth in Anaerobic bottle after 48 hours. 11/06/19 19:54 Aerobic Blood Culture - Preliminary Blood No growth in Aerobic bottle after 48 hours. Anaerobic Blood Culture - Preliminary No growth in Anaerobic bottle after 48 hours.
--- NOTE | 2019-11-10 06:57 | History & Physical Bridge Note ---
Date of Service November 10, 2019 History & Physical Bridge Note I have examined the patient, reviewed the History & Physical and in the interval since the performance of the History & Physical I have noted the following changes of clinical significance: no changes noted
[2019-11-10] MEDS ORDERED: LIDOCAINE HCL 2% (LOCAL) INJ 50 ML VIAL ONE (07:00)
[2019-11-10] MEDS ORDERED: fentaNYL citrate 100 MCG/2 ML VIAL IV PRN (07:03)
[2019-11-10] MEDS ORDERED: ePHEDrine sulfate 50 MG/ML AMP IV PRN (07:03)
[2019-11-10] MEDS ORDERED: ATROPINE SULFATE 0.1 MG/ML 10ML SYR IV PRN (07:03)
[2019-11-10] MEDS ORDERED: ONDANSETRON INJ 2 MG/ML 2 ML VIAL IV PRN (07:03)
--- NOTE | 2019-11-10 07:47 | Operative Report ---
PG Post Operative Report Pre & Post Diagnosis Operation Date: 11/10/19 12:35 Pre-Op Diagnosis: THUMB AND HAND INFECTION Post-Op Diagnosis: THUMB AND HAND INFECTION I identified the patient and participated in the time-out.: Yes Procedure Operation Date: 11/10/19 12:35 Actual Procedures p Right Thumb Incision and Drainage(Right) - Indra Cornejo DO Surgeon Indra Cornejo, Product Management Specialist None Estimated Blood Loss 5 Findings Consistent with Post-Op Diagnosis Specimens Swab cultures Complications none Disposition Disposition: Recovery Room Indications Ms. Castellano is a pleasant 64-year-old male who began noticing extensive swelling of his right hand. He thinks he may have had a small puncture wound around the IP joint of the right thumb but he does not recall anything specific. He was not having much pain in the hand but was becoming more more swollen. He was failing outpatient oral antibiotics and came to the emergency room. He was then admitted to the medical service and placed on IV antibiotics. He was never having much pain in his hand and no abscess could really be localized. He was very swollen. Over the next couple days the swelling started go down some and more of an abscess started to form around the IP joint of the right thumb. I sent him for an MRI of his hand to make sure there were no deep abscesses or foreign bodies. The MRI only showed the abscess around the IP joint of the right thumb. We elected to proceed with an I&D of the right thumb. Description of Procedure On November 10, 2019 he was brought down from his hospital room to the preoperative holding area. The operative extremity was identified and signed. Was taken back to the operating room and laid on the table in supine position. He was given basic sedation. He was then given a digital block to the right thumb. The right thumb was then prepped and draped in sterile fashion. A timeout was done. The patient and the operative extremity was properly identified. A transverse incision was made over the flexor crease of the IP joint of the right thumb. There was a large amount of purulent discharge that came out of the incision. The discharge was swabbed and sent for culture. Time was spent searching for a foreign body but I did not see any. The wound was then irrigated. The incision was then closed with #4-0 nylon suture. He was then placed in a soft dressing. He was then taken to the postanesthesia care unit in stable condition. He tolerated the procedure well. I attest to the content of the Intraoperative Record and any orders documented therein. Any exceptions are noted below.
--- NOTE | 2019-11-10 08:09 | Anesthesiology Progress Note ---
Date of Service November 10, 2019 Anesthesia Post Procedure Vital Signs Vital Signs: Temp Pulse Pulse Pulse Resp BP Pulse Ox 11/10/19 08:05 36.6 C 60 12 128/88 96 11/10/19 07:55 59 L 15 128/88 96 11/10/19 07:49 36.4 C L 62 18 146/94 H 95 11/10/19 06:50 36.9 C 60 18 L 18 141/89 H 98 11/10/19 06:22 36.7 C 65 20 158/91 H 98 11/09/19 23:21 36.7 C 68 16 146/85 H 97 11/09/19 15:09 36.7 C 75 18 162/91 H 97 Pain Intensity Right Hand: Pain Intensity: 3 Transfer of Care Handoff Completed per policy Notes Mental Status: alert / awake / arousable Patient Amnestic to Procedure: Yes Nausea / Vomiting: adequately controlled Pain: adequately controlled Airway Patency, RR, SpO2: stable & adequate BP & HR: stable & adequate Hydration State: stable & adequate Anesthetic Complications: no major complications apparent
[2019-11-10] MEDS: SODIUM CHLORIDE 0.9% 1000ML 1,000 ML IV SCH (08:53)
[2019-11-10] MEDS: LACTOBACILLUS ACIDOPHILUS (FLORANEX) TAB PO SCH ×4 (08:53→20:18)
[2019-11-10] MEDS ORDERED: VANCOMYCIN TROUGH ONE (09:30)
[2019-11-10 10:13] LABS: Est GFR (African American) 108.7; Est GFR (Non-African American) 93.7
--- NOTE | 2019-11-10 10:30 | Pharmacy Report ---
Pharmacy Abx Dose Short Note - Date of Service November 10, 2019 - Assessment & Plan Assessment 64 year old M receiving vancomycin and Zosyn for treatment of cellulitis of the right hand (brain MRI shows no current evidence of osteomyelitis). Renal function stable, patient remains afebrile. Day # 5 of antimicrobial therapy. Patient underwent I&D this morning (11/09) - large amount of purulent discharge noted Plan Vancomycin * Trough level of 13.4 mcg/mL is therapeutic for SSTI * Continue dose of 1250 mg IV every 10 hours * Goal trough level for cellulitis : 10 to 20 mcg/mL * Trough level ordered for: 11/13/19 Zosyn * Continue current dose of 3.375 g IV q8h Pharmacy will continue to follow and will adjust dose/frequency as necessary. Thank you.
[2019-11-10] MEDS: VANCOMYCIN HCL 1,250 MG in SODIUM CHLORIDE 0.9% 250 ML IV SCH ×2 (10:40→20:18)
--- NOTE | 2019-11-10 13:04 | Infectious Disease Consult ---
Date of Consultation November 10, 2019 Assessment & Plan (1) Cellulitis of hand, right: will continue emperic IV abx and follow cultures, blood cultures negative to date. supsect he will need several weeks abx, hopefully can transition to po. continue local wound care. no FB found but would consider tetanus booster if not already done. History of Present Illness Attending Physician: Rusty Carrillo MD pt admitted with increased pain, swelling of right hand. was being managed at home, was on augmentin and then clinda with clinical worseing, no trauma. ortho eval, MRI done in ER - 1.4x1.2x0.4cm abscess noted, no osteo found. went to OR earlier today for I&D, tolerated well. back in room. pain controlled. afebrile since admission. placed on emperic vanco and zosyn, remains on this. tolerating well. blood cultures negative, OR culture obtained today, culture and gram stain pending. wbc 3.4. states pain controlled, swelling increased post op. no abd pain, no n/v/d. dressing intact. Allergies Allergy/AdvReac Type Severity Reaction Status Date / Time No Known Allergies Allergy Unverified 11/10/19 06:45 Home Medications Home Medications Medication Instructions Recorded Confirmed Type acetaminophen 650 mg PO DAILY PRN 11/06/19 11/06/19 History clindamycin HCl 300 mg PO TID 11/06/19 11/06/19 History naproxen sodium 550 mg PO BID PRN 11/06/19 11/06/19 History Patient History Social History Preferred Language: [place] Islander Communication Ability: Effective Retort Setter Required: No Beliefs That Will Affect Care: None Current Living Situation: Family Current Living Situation Comment: daughter, lurdes Other Information That Helps Us Care for You: No Feels Safe at Home: Yes Safety Concerns: Feels Safe At This Time Smoking Status: Never smoker Do You Dip or Chew Tobacco: No ; Second Hand Exposure: No ; Hx Alcohol Use: Yes Alcohol type: beer, wine and hard liquor Hx Substance Use: No Review of Systems Review of Systems: All systems reviewed & are unremarkable except as noted in HPI & below Physical Exam Constitutional: WD/WN, vitals as above Eyes: PERRL, conjunctivae normal, anicteric sclerae ENMT: external ear and nose normal, oropharynx normal Neck: normal visual inspection Respiratory: normal respiratory effort, lungs clear to auscultation Cardiovascular: RRR, no murmur, no edema Gastrointestinal (Abdomen): normal bowel sounds, soft, nontender, no hepatosplenomegaly Musculoskeletal: no cyanosis or clubbing, extremities motor strength 5/5 Skin: no rashes, warm and dry + wound (dressing intact) Psychiatric: A+Ox3, euthymic affect Results & Data ([facility]) Vital Signs (Past 12 Hours) Vital Signs Temp Pulse Pulse Pulse Resp BP Pulse Ox 11/10/19 11:19 36.6 C 69 18 149/95 H 98 11/10/19 10:20 36.6 C 64 17 158/96 H 98 11/10/19 09:20 36.4 C L 69 18 130/85 98 11/10/19 08:50 36.6 C 69 18 152/98 H 96 11/10/19 08:19 36.5 C 65 18 142/76 H 95 11/10/19 08:05 36.6 C 60 12 132/91 96 11/10/19 07:55 59 L 15 128/88 96 11/10/19 07:49 36.4 C L 62 18 146/94 H 95 11/10/19 06:50 36.9 C 60 18 L 18 141/89 H 98 11/10/19 06:22 36.7 C 65 20 158/91 H 98 Laboratory Results Microbiology 11/06/19 19:54 Blood Aerobic Blood Culture - Preliminary No growth in Aerobic bottle after 48 hours. 11/06/19 19:54 Blood Anaerobic Blood Culture - Preliminary No growth in Anaerobic bottle after 48 hours. 11/06/19 19:54 Blood Aerobic Blood Culture - Preliminary No growth in Aerobic bottle after 48 hours. 11/06/19 19:54 Blood Anaerobic Blood Culture - Preliminary No growth in Anaerobic bottle after 48 hours. PG Care Time/CCT Total # of Minutes Spent Total Time Spent with Patient: Total time spent is greater than 50% in coordination of care (as documented) at patient's floor/unit and/or counseling patient: Coding Level of Care Code 72091 Inpt Consult Level 4 Diagnoses Cellulitis of hand, right L03.113
--- NOTE | 2019-11-10 13:12 | Hospitalist Progress Note ---
Date of Service November 10, 2019 Assessment & Plan (1) Cellulitis of hand, right: patient is a superintendent plant by profession, also does gardening as a hobby presents with right thumb and hand swelling x 7-10 days failed outpatient Augmentin, Clindamycin xray of hand: no acute bony abnormalities MRI hand: 1. T2 marrow edema involving the distal phalanx of the thumb, but no definitive T1 marrow edema. The findings are therefore indicative of a reactive osteitis, with no current evidence of osteomyelitis. 2. Soft tissue edema involving the thumb with an acute cutaneous and subcutaneous fluid collection on the volar aspect of the thumb centered on the interphalangeal joint measuring 14 x 12 x 4 mm. 3. Small amount of fluid within the flexor tendon sheath of the thumb.. on Day 3 IV Vanco, Day 1 IV Zosyn s/p I&D right thumb Drainage culture: pending ID consulted continue IV NSS appreciate Ortho SVC input case discussed with patient in detail and at length all questions answered he is understanding, agreeable, comfortable with the plan of care Admission and Anticipated Discharge Date Admission Date: November 06, 2019 Subjective ff up for right hand cellulitis seen sitting in chair, comfortable s/p I&D of thumb this AM states right hand feels better, less swollen today no other symptoms Review of Systems Review of Systems: All systems reviewed & are unremarkable except as noted in HPI & below Physical Exam Physical Exam: General- oriented x 3, not in distress, speaks in sentences with no effort or accessory muscle use Eyes- anicteric Neck- no JVD Lungs- clear breath sounds bilaterally Heart- normal rate, regular rhythm; no murmurs Abdomen- normal bowel sounds, nondistended, soft, nontender Extremities- no pretibial edema, no calf tenderness right hand: heavy dressing over thumb less edema of the rest of the hand, no erythema better ROM of fingers Neuro- alert, oriented x 3; no gross focal neurologic deficits Skin- warm & dry Results & Data Results & Data ([facility]) Vital Signs (Past 12 Hours) Vital Signs Temp Pulse Pulse Pulse Resp BP Pulse Ox 11/10/19 11:19 36.6 C 69 18 149/95 H 98 11/10/19 10:20 36.6 C 64 17 158/96 H 98 11/10/19 09:20 36.4 C L 69 18 130/85 98 11/10/19 08:50 36.6 C 69 18 152/98 H 96 11/10/19 08:19 36.5 C 65 18 142/76 H 95 11/10/19 08:05 36.6 C 60 12 132/91 96 11/10/19 07:55 59 L 15 128/88 96 11/10/19 07:49 36.4 C L 62 18 146/94 H 95 11/10/19 06:50 36.9 C 60 18 L 18 141/89 H 98 11/10/19 06:22 36.7 C 65 20 158/91 H 98
[2019-11-11] MEDS: PIPERACILLIN/TAZOBACTAM 3.375 GM in DEXTROSE 5% 100 ML IV SCH ×2 (01:03→11:02)
[2019-11-11] MEDS: SODIUM CHLORIDE 0.9% 1000ML 1,000 ML IV SCH (01:03)
[2019-11-11] MEDS: VANCOMYCIN HCL 1,250 MG in SODIUM CHLORIDE 0.9% 250 ML IV SCH (05:43)
--- NOTE | 2019-11-11 08:14 | Orthopedic Progress Note ---
Date of Service November 11, 2019 Assessment & Plan (1) Cellulitis of hand, right: I was able to get a moderate amount of pus out of the I&D I did yesterday on the volar aspect of his right thumb. It was very superficial. It did not track to the flexor tendon sheath. The MRI did not show any additional areas of abscess. I think over the next few days the swelling should go down his hand significantly. I think it is reasonable to switch him to oral antibiotics at this time and possibly discharge him to home. It will take a few days for the cultures and sensitivities to come back. So far the cultures have not grown out anything. I do want to see him back in my office in 2 weeks for suture removal. Orthopedic discharge instructions were placed in the discharge summary. He is to call to make the appointment. Office phone number is [phone]. Present on Admission?: Yes Colton Kennedy was seen and examined at bedside this morning. Overall he is doing fairly well. He still some swelling in his hand but it is going down a little bit every day. He is not having much pain in his right thumb. He is feeling well and has no new complaints. Physical Exam Musculoskeletal: On physical examination of his right hand, the dressing is clean and dry. He can make about 60% of a full fist. The swelling is going down on the back of his hand but he still some swelling in the palm. He has pain with full extension of his ring and middle fingers but no pain down the flexor tendon sheath. Results & Data ([facility]) Vital Signs (Past 12 Hours) Vital Signs Temp Pulse Pulse Resp BP Pulse Ox 11/11/19 07:28 36.5 C 61 16 161/91 H 97 11/11/19 04:06 36.7 C 60 18 145/80 H 97 11/10/19 23:39 36.8 C 72 18 150/89 H 97 PG Care Time/CCT Total # of Minutes Spent Total Time Spent with Patient: Total time spent is greater than 50% in coordination of care (as documented) at patient's floor/unit and/or counseling patient: Coding Level of Care Code None Diagnoses Cellulitis of hand, right L03.113
[2019-11-11] MEDS: LACTOBACILLUS ACIDOPHILUS (FLORANEX) TAB PO SCH ×2 (08:37→12:18)
[2019-11-11 09:30] LABS: Basophils # (auto) 0.01 K/uL (0-0.2); Basophils % (auto) 0.2 %; Eosinophils # (auto) 0.07 K/uL (0-0.5); Eosinophils % (auto) 1.7 %; Hematocrit (blood only) 34.8 % (42-52); Hemoglobin 12.2 g/dL (14.0-18.0); Immature Granulocytes # (auto) 0.01 K/uL (0.00-0.02); Immature Granulocytes % (auto) 0.2 %; Lymphocytes # (auto) 0.92 K/uL (1.2-3.4); Lymphocytes % (auto) 22.8 %; Mean Corpuscular Hemoglobin 37.4 pg (25-34); Mean Corpuscular Hgb Conc 35.1 g/dL (32-36); Mean Corpuscular Volume 106.7 fL (80-100); Mean Platelet Volume 8.3 fL (7.4-10.4); Monocytes % (auto) 7.4 %; Neutrophils # (auto) 2.73 K/uL (1.4-6.5); Neutrophils % (auto) 67.7 %; Platelet Count 290 K/uL (130-400); RDW Coefficient of Variation 13.3 % (11.5-14.5); RDW Standard Deviation 52.1 fL (36.4-46.3); Red Blood Count 3.26 M/uL (4.7-6.1); White Blood Count 4.04 K/uL (4.8-10.8)
[2019-11-11 09:47] LABS: BUN Creatinine Ratio 11.3 (10-20); Calcium 9.1 mg/dl (8.5-10.1); Creatinine Clr Calc Pharmacy 85.2 ml/min; Est GFR (African American) 110.4; Est GFR (Non-African American) 95.2; Potassium 3.5 mmol/L (3.5-5.1)
[2019-11-11] MEDS ORDERED: DIPHTHERIA/TETANUS/PERTUSSIS 0.5 ML SYR/VIAL IM ONE (11:34)
--- NOTE | 2019-11-11 11:54 | Hospitalist Progress Note ---
Date of Service November 11, 2019 Assessment & Plan (1) Cellulitis of hand, right: patient is a master chef by profession, also does gardening as a hobby presents with right thumb and hand swelling x 7-10 days failed outpatient Augmentin, Clindamycin xray of hand: no acute bony abnormalities MRI hand: 1. T2 marrow edema involving the distal phalanx of the thumb, but no definitive T1 marrow edema. The findings are therefore indicative of a reactive osteitis, with no current evidence of osteomyelitis. 2. Soft tissue edema involving the thumb with an acute cutaneous and subcutaneous fluid collection on the volar aspect of the thumb centered on the interphalangeal joint measuring 14 x 12 x 4 mm. 3. Small amount of fluid within the flexor tendon sheath of the thumb.. placed on IV Vanco, and IV Zosyn s/p I&D right thumb 11/09 Drainage culture: pending right hand swelling improving d/c plan: Doxycycline 100mg BID x 10 days Moxifloxacin 400mg daily x 10 days (may need to be de-escalated once drainage culture returns) Probiotics daily OT also consulted and TDAP (tetanus booster) given prior to discharge (2) Elevated blood pressure reading: noted to have systolic BP 140-160s while admitted no history of HTN in the past asymptomatic possibly from pain, stress, IV fluids ff up as outpatient (3) Prediabetes: a1c 5.7 ff up as outpatient Disposition: ff up with PCP next week as outlined in DC instructions ff up with Ortho in 10-14 days case discussed with patient in detail and at length all questions answered he is understanding, agreeable, comfortable with the plan of care Admission and Anticipated Discharge Date Admission Date: November 06, 2019 Subjective ff up for thumb and hand cellulitis seen resting in bed, comfortable states right hand continues to improve less pain, less swelling denies fever/chills, headache, dyspnea, palpitations, dizziness no other symptoms states he is ready and would like to be discharged today Review of Systems Review of Systems: All systems reviewed & are unremarkable except as noted in HPI & below Physical Exam Physical Exam: General- oriented x 3, not in distress, speaks in sentences with no effort or accessory muscle use Eyes- anicteric Neck- no JVD Lungs- clear BS BL Heart- normal rate, regular rhythm; no murmurs Abdomen- normal bowel sounds, nondistended, soft, nontender Extremities- right hand: less edema, no erythema/warmth/tenderness, better ROM of fingers right thumb: heavy dressing in place no pretibial edema, no calf tenderness Neuro- alert, oriented x 3; no gross focal neurologic deficits Skin- warm & dry Results & Data Results & Data ([facility]) Vital Signs (Past 12 Hours) Vital Signs Temp Pulse Pulse Resp BP Pulse Ox 11/11/19 07:28 36.5 C 61 16 161/91 H 97 11/11/19 04:06 36.7 C 60 18 145/80 H 97
[2019-11-11] MEDS ORDERED: DOXYCYCLINE HYCLATE 100 MG CAP PO SCH (12:00)
--- NOTE | 2019-11-11 12:09 | Discharge Summary ---
Date of Service November 11, 2019 Admission HPI Per Admitting Provider CHIEF COMPLAINT: Swelling of the right thumb and hand. HISTORY OF PRESENT ILLNESS: This is a 64-year-old male with past medical history significant for prediabetes, not on any medications, comes with right hand thumb and hand swelling and pain. The patient says he noticed right thumb swelling about 10 days ago and last Clement[place] he went to see his doctor and was prescribed Augmentin, but it was not getting better and yesterday again went to his PCP and changed the antibiotics to clindamycin, but as it was not getting better he came to the ER. He has no knowledge of any injury or any insect bite. Denies any fever or chills. He has some stiffness in his hand and difficulty flexing the hand. Denies any other complaints. Resting comfortably and hemodynamically stable. Lives with his daughter. Otherwise active. Denies any chest pain. No shortness of breath, no cough, no fever, no chills, no nausea, no vomiting, no abdominal pain. Normal bowel and bladder movements. No headache, no blurred visions, no earache, no runny nose, no sore throat, no difficulty swallowing. Appetite is okay. No sick contacts, no recent travel outside [facility] .. No loss of smell or taste. Admission Exam Per Admitting Provider GENERAL: The patient is of moderate build, not in acute distress. VITAL SIGNS: Temperature 36.7, pulse 84, respiratory rate 18, blood pressure 156/103, oxygen 97% on room air. HEENT: No pallor, no icterus. Pupils equal, round, reactive to light. Extraocular movements intact. NECK: No neck masses. Supple. CARDIOVASCULAR: S1, S2 heard. Regular rate and rhythm, no murmur, no gallop. RESPIRATORY SYSTEM: Normal AP diameter. No accessory muscle use. No wheezing, no crackles. ABDOMEN: Soft, bowel sounds present. Nontender. No distention. CENTRAL NERVOUS SYSTEM: Cranial nerves II-XII grossly intact. Nonfocal. EXTREMITIES: Right thumb and right hand is swollen and painful movements, . Principal Diagnosis RIGHT HAND AND THUMB CELLULITIS, RIGHT THUMB ABSCESS Discharge Exam General- oriented x 3, not in distress, speaks in sentences with no effort or accessory muscle use Eyes- anicteric Neck- no JVD Lungs- clear BS BL Heart- normal rate, regular rhythm; no murmurs Abdomen- normal bowel sounds, nondistended, soft, nontender Extremities- right hand: less edema, no erythema/warmth/tenderness, better ROM of fingers right thumb: heavy dressing in place no pretibial edema, no calf tenderness Neuro- alert, oriented x 3; no gross focal neurologic deficits Skin- warm & dry Discharge Data Allergies Allergy/AdvReac Type Severity Reaction Status Date / Time No Known Allergies Allergy Unverified 11/10/19 06:45 Consultations 11/06/19 19:20 ED Decision to Admit Stat 11/06/19 22:09 Consult Case Management - Discharge Planning Routine 11/07/19 08:00 Consult Orthopedic Surgery Routine 11/09/19 18:56 Consult Infectious Diseases Routine Procedures Performed Operation Date: 11/10/19 12:35 Actual Procedures p Right Thumb Incision and Drainage(Right) - Indra Pérez DO Ordered Studies 11/09/19 10:36 MR hand RT wo con Urgent There is T2 marrow edema involving the distal phalanx of the thumb. No definitive T1 marrow edema is visualized. There is soft tissue edema centered on the interphalangeal joint. There is a small amount of fluid present within the flexor tendon sheath. There is a superficial subcutaneous fluid collection on the volar aspect of the thumb centered on the interphalangeal joint measuring 12 x 14 x 4 mm. There are no ferromagnetic artifacts 2 indicate a definitive foreign body. IMPRESSION: 1. T2 marrow edema involving the distal phalanx of the thumb, but no definitive T1 marrow edema. The findings are therefore indicative of a reactive osteitis, with no current evidence of osteomyelitis. 2. Soft tissue edema involving the thumb with an acute cutaneous and subcutaneous fluid collection on the volar aspect of the thumb centered on the interphalangeal joint measuring 14 x 12 x 4 mm. 3. Small amount of fluid within the flexor tendon sheath of the thumb.. Hospital Course (1) Cellulitis of hand, right: patient is a catering sous chef by profession, also does gardening as a hobby presents with right thumb and hand swelling x 7-10 days failed outpatient regimen of Augmentin, Clindamycin xray of hand: no acute bony abnormalities MRI hand: 1. T2 marrow edema involving the distal phalanx of the thumb, but no definitive T1 marrow edema. The findings are therefore indicative of a reactive osteitis, with no current evidence of osteomyelitis. 2. Soft tissue edema involving the thumb with an acute cutaneous and subcutaneous fluid collection on the volar aspect of the thumb centered on the interphalangeal joint measuring 14 x 12 x 4 mm. 3. Small amount of fluid within the flexor tendon sheath of the thumb.. placed on IV Vanco, and IV Zosyn s/p I&D right thumb 11/[address] Indra Pérez Drainage culture: Staph. aureus, sens pending right hand swelling and pain has been improving since admission Occupational therapy also consulted and TDAP (tetanus booster) given prior to discharge d/c plan: Doxycycline 100mg BID x 10 days Moxifloxacin 400mg daily x 10 days (may need to be de-escalated once drainage culture returns) Probiotics daily ff with Ortho in 10-14 days (2) Elevated blood pressure reading: noted to have systolic BP 140-160s while admitted no history of HTN in the past asymptomatic possibly from pain, stress, IV fluids ff up as outpatient (3) Prediabetes: a1c 5.7 ff up as outpatient (4) Mild anemia: Hg 12-13 MCV, MCH mildly elevated denies signs of bleeding repeat CBC and monitor as outpatient Disposition: ff up with PCP next week as outlined in DC instructions ff up with Ortho in 10-14 days case discussed with patient in detail and at length all questions answered he is understanding, agreeable, comfortable with the plan of care Total Time Total Time Spent Total Time Spent (In Minutes): 50 minutes Discharge Plan Discharge Items Patient Disposition: Home - Self-Care Reason For Visit: THUMB AND HAND INFECTION Discharge Diagnosis: RIGHT THUMB AND HAND CELLULITIS Activity: Resume your previous activity Driving/Machine Use: NO DRIVING UNTIL RE-EVALUATED AND ALLOWED BY PRIMARY CARE PHYSICIAN Non-emergency contact: Primary Care Provider and Surgeon Call non-emergency contact if: you have any medication questions, your symptoms worsen, your pain is not controlled, your pain is worsening, your pain is unusual for you, your pain is concerning for you, you have a fever, your wound has increased redness, your wound has increased drainage and your wound pain has increased Follow-up/Referrals: Yanely Gunderson DO [Primary Care Provider] - 11/17/19 11:20 am Indra Pérez DO [Physician] - Diet: Heart Healthy Addtl Attending Provider Instructions: PLEASE REVIEW YOUR NEW MEDICATION LIST AND FOLLOW INSTRUCTIONS CAREFULLY. YOUR NEW MEDICATIONS ARE: DOXYCYCLINE and MOXIFLOXACIN- antibiotics TAKE A PROBIOTIC DAILY WHILE TAKING ANTIBIOTICS AND FOR AT LEAST 1 MONTH AFTER. DRINK PLENTY OF FLUIDS. CALL PRIMARY CARE PHYSICIAN DR. GUNDERSON/DR. PÉREZ OR RETURN TO THE ER IMMEDIATELY IF WITH WORSENING OF HAND/THUMB SWELLING/PAIN/REDNESS, DISCHARGE, FEVER/CHILLS, DIARRHEA. FOLLOW UP WITH PRIMARY CARE PHYSICIAN DR. GUNDERSON NEXT WEEK OUTLINED ABOVE. FOLLOW UP WITH ORTHOPEDIC SURGEON DR. PÉREZ IN 10-14 DAYS OUTLINED ABOVE. Orthopedic discharge instructions May change dressing in 5 days. Keep the wound covered and the thumb in full extension. Follow-up with Dr. Pérez in 10 to 14 days for suture removal. Office phone number is [phone] Pending Studies at Discharge: Yes Studies:: FINAL RESULTS OF DRAINAGE CULTURE, DR. ENRIQUEZ WILL BE CALLING YOU IN 1-2 DAYS FOR THE RESULTS AND POSSIBLE CHANGE IN ANTIBIOTIC REGIMEN Stand-Alone Forms: My [facility], Smoking Cessation Medications and DC Order Prescriptions: New doxycycline hyclate 100 mg Capsule 100 mg PO BID Qty: 20 RF: 0 moxifloxacin 400 mg tablet 400 mg PO DAILY Qty: 10 RF: 0 Continued acetaminophen 325 mg Tablet 650 mg PO DAILY PRN (Reason: Pain) RF: 0 Discontinued clindamycin HCl 300 mg capsule 300 mg PO TID RF: 0 naproxen sodium 550 mg tablet 550 mg PO BID PRN (Reason: Pain) RF: 0 Discharge Orders: Discharge Order (Routine); Ordered 11/11/19 Ordered By: Rusty Murphy/Other Patient Handouts: Prediabetes, A1C Admission Data Admit Date/Time: 11/06/19 21:02 Attending Provider: Rusty Enriquez Admit Provider: Linus Barroso Primary Care Provider: Yanely Gunderson Other Providers: Nolberto Oliveira ; Linus Barroso ; Indra Pérez ; Hina Hudson
--- NOTE | 2019-11-11 22:39 | Electrocardiogram Report ---
Test Reason : Blood Pressure : / mmHG Vent. Rate : 062 BPM Atrial Rate : 062 BPM P-R Int : 156 ms QRS Dur : 076 ms QT Int : 418 ms P-R-T Axes : 064 069 085 degrees QTc Int : 424 ms Normal sinus rhythm Minimal voltage criteria for LVH, may be normal variant ST elevation, consider early repolarization vs injury pattern When compared with ECG of 18-APR-2012 13:50, QRS duration has decreased Confirmed by Cristhian Tejeda ([id number]) on 11/11/2019 10:39:15 PM Referred By: REFERRED SELF Confirmed By:Cristhian Tejeda
[2019-11-13] MEDS ORDERED: VANCOMYCIN TROUGH ONE (07:30)
== END 2019-11-11 15:11 | disposition home or self-care (01) | DRG 603 ==
LOC: ED 17:28 → SUATTDRO 21:02 → 3E 21:02